=== PATIENT | male | born 1965 | race African-American/Black ===

== ENCOUNTER 2021-06-17 13:01 | Day surgery (SDC) | payer OTHER ==
[~2021-06-17] VITALS: Ht 186.7 cm; Wt 96.3 kg
[~2021-06-17 13:01] MED LIST: HYDROmorphone 2 MG/ML VIAL IVP PRN; IV RINGERS,LACTATED 1000ML 1,000 ML IV SCH; MORPHINE SULFATE 2 MG/ML INJ. IVP PRN; PROCHLORPERAZINE 10 MG/2 ML VIAL. IVP PRN; fentaNYL PF VIAL 100 MCG/2 ML VIAL IVP PRN
[2021-06-17 13:21] VITALS: BP 125/60
[2021-06-17] MEDS ORDERED: OMEG-152 PO (13:29)
[2021-06-17] MEDS ORDERED: MULT-690 PO (13:29)
[2021-06-17] MEDS ORDERED: FLAX10003 PO (13:29)
[2021-06-17] MEDS ORDERED: ATOR40TA PO (13:29)
[2021-06-17] MEDS ORDERED: LIDOCAINE 2% PF 5 ML VIAL. ONE (14:39)
[2021-06-17] MEDS ORDERED: fentaNYL PF VIAL 100 MCG/2 ML VIAL ONE (14:39)
[2021-06-17] MEDS ORDERED: DEXAMETHASONE SOD PHOS 4 MG/ML VIAL ONE (14:39)
[2021-06-17] MEDS ORDERED: ONDANSETRON PF 4 MG/2 ML VIAL. ONE (14:39)
[2021-06-17] MEDS ORDERED: KETOROLAC 30 MG/ML VIAL. ONE (14:39)
[2021-06-17] MEDS ORDERED: PROPOFOL 10 MG/ML (20ML) VIAL. IV ONE ×2 (14:39→15:51)
[2021-06-17] MEDS ORDERED: SEVOFLURANE 61 TO 120 MINUTES. IH ONE (14:39)
[2021-06-17] MEDS ORDERED: BUPIVACAINE-EPI 0.25%-1:200000 MPF 30 ML VIAL. ONE (14:57)
[2021-06-17] MEDS ORDERED: OXYC1TAB19 PO (16:53)
[2021-06-17 16:59] VITALS: BP 116/74
[2021-06-17] MEDS ORDERED: oxyCODONE/APAP 7.5/325 1 TAB TABLET PO ONE (17:00)
--- NOTE | 2021-06-17 17:00 | DISCH ---
DISCHARGE INSTRUCTIONS Condition on Discharge Condition on Discharge: Stable Activity After Discharge Activity Instructions for Disc: Other, see below (Keep knee out straight with brace locked in extension) Weight Bearing Status after Di: As tolerated (Weightbearing allowed with brace locked in extension) Diet after Discharge Diet after Discharge: Regular Wound Incision Care Wound/Incision Care: Ice to area for comfort, Change dressing (May remove dressing in 3 days may then shower no soaking until wound check) Contacting the DRCassidy after DC Call your doctor for: Concerns you may have Follow-Up Follow up with: Dr. Jama or Arya 1 week CESAR JAMA MD Jun 17, 2021 16:59
--- NOTE | 2021-06-17 17:19 | PDOC4 ---
Operative Note Operative Note Date of surgery: 06/17/2021 Preoperative diagnosis: Right partial patellar tendon tear Postoperative diagnosis: Same as expected at distal pole patella Operative procedure: Right patellar tendon debridement and repair Surgeon: Wiley Assist: Bruno crockett assist Anesthesia: General Estimated blood loss: 10 cc Complications: None Operative indications: Patient is a 55-year-old male with traumatic onset of right knee pain that has been persistent despite extended nonoperative management for several months despite rest. MRI had showed a partial-thickness patellar tendon tear near the distal pole of the patella and he has had no relief in fact reports worsening despite rest and nonoperative management. 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 I had recommended additional nonoperative management even after the MRI results with no improvement in his condition. We talked about the possibility of additional nonoperative management versus attempts at repair and the concern for ongoing pain nonhealing infection medical or other anesthetic complications among others and specifically the fact that we may not be able to get him back to his desired activities despite the positive outcomes. He does wish to proceed with surgical evaluation and treatment especially given his lack of improvement and worsening recently Operative text: Patient was identified procedure verified patient placed in the supine position on the operating table. After adequate amounts of general anesthesia were administered the right lower extremity was prepped and draped in standard sterile fashion with a thigh tourniquet and after timeout was performed patient procedure identified and verified the right lower extremity was exsanguinated by Esmarch bandage tourniquet inflated to 250 mmHg. A midline incision was then made over the distal pole of the patella and patellar tendon. Patella tendon was grossly intact but irritated in the area of the distal pole. A longitudinal incision was made in the patellar tendon substance and the deep portion of the substance was noted to be somewhat degraded and compromised with a partial-thickness tear in the area of the insertion and the deep portion of the distal pole origin was debrided back to stable tissue and the bony origin likewise debrided back to stable bleeding tissue. Overall the extensor mechanism was not compromised and the majority of the superficial tendon tissue. Tourniquet was deflated and satisfactory punctate bleeding was noted to the di stal bone and to the tendon and underlying fat pad. After the debridement repair was carried out in a [id number] manner with max braid tissue with buried knots and reinforced with #1 Vicryl suture in a running fashion. Irrigation carried out normal saline solution subcutaneous closure accomplished using buried Vicryl and subcuticular strata fix Monocryl. Sterile dressings were applied and patient was placed in a postop knee brace locked in extension. Toes were noted be warm pink following deflation of the tourniquet. Bruno claire assisted in patient positioning prepping draping retraction closure dressings and application of brace CESAR BARBER MD Jun 17, 2021 17:19
== END 2021-06-17 17:30 | disposition home or self-care (01) ==
LOC: SURG 13:01
PROVIDERS: ATTEND Orthopaedic Surgery
DX: S76.111A Strain of right quadriceps muscle, fascia and tendon, initial encounter (principal); E78.00 Pure hypercholesterolemia, unspecified; Z98.52 Vasectomy status; Z98.890 Other specified postprocedural states; X58.XXXA Exposure to other specified factors, initial encounter; Y93.89 Activity, other specified; Y92.9 Unspecified place or not applicable
CPT/HCPCS: 27380; A4213; A4930; A6402; A6449; J0690; J1100; J1885; J2405; J2704; J3010; J3490